=== PATIENT | female | born 1960 | race Caucasian/White ===

== ENCOUNTER → 2016-04-30 | Outpatient (CLI) | payer BC ==
[~2016-04-30] MED LIST: HYDR-5688 PO; LPT10 PO; LXP20 PO; TOPI50TA24 PO; VALA1TAB PO
== END | disposition home or self-care (01) ==
LOC: C.PAPS 11:42
PROVIDERS: ATTEND Obstetrics & Gynecology
DX: Z01.419 Encounter for gynecological examination (general) (routine) without abnormal findings (principal)

== ENCOUNTER 2016-06-08 23:52 | Emergency (ER) | payer BC ==
[~2016-06-08] VITALS: Ht 160 cm; Wt 62.2 kg
[2016-06-08 23:54] VITALS: Ht 160 cm; Wt 62.2 kg
[2016-06-09] MEDS ORDERED: SODIUM CHLORIDE 0.9% 1000ML 1,000 ML IV STA (00:16)
[2016-06-09] MEDS ORDERED: HYDROmorphone INJ 0.5 MG/0.5 ML SYR IV STA (00:16)
[2016-06-09] MEDS ORDERED: PROMETHAZINE HCL INJ 25 MG in SODIUM CHLORIDE 0.9% 50ML 50 ML IV STA (00:16)
[2016-06-09 01:23] LABS: HEMATOCRIT 43.4 % (37-47); MEAN CELL VOLUME 89.7 fL (80-100); MEAN CORPUSCULAR HEMOGLOBIN 31.8 pg (25-34); MEAN CORPUSCULAR HGB CONC 35.5 g/dl (32-36); MEAN PLATELET VOLUME 9.9 fL (7.4-10.4); PLATELET COUNT 250 K/uL (130-400); RED BLOOD COUNT 4.84 M/uL (4.2-5.4); WHITE BLOOD COUNT 10.94 K/uL (4.8-10.8)
[2016-06-09 01:32] LABS: BUN/CREATININE RATIO 11.6 (10-20); CALCIUM 9.7 mg/dl (8.5-10.1); CREATININE 0.93 mg/dl (0.60-1.20); POTASSIUM 3.5 mmol/L (3.5-5.1)
[2016-06-09 01:48] LABS: BASO % 0.1 %; BASO ABS # 0.01 K/uL (0-0.2); COMPLETE YES; EOS % 0.1 %; IG% 0.2 %; LYMPH % 4.5 %; LYMPH ABS # 0.49 K/uL (1.2-3.4); MONO % 8.5 %; NEUT % 86.6 %
[2016-06-09] MEDS ORDERED: ONDANSETRON HOME PACK 4MG OD TAB PO ONE (02:00)
--- NOTE | 2016-06-09 02:01 | EMERGENCY ROOM VISIT NOTE ---
History First contact with patient: 00:09 Chief Complaint: HEADACHE Stated Complaint: THROWING UP,HEADACHE, SINUS History of Present Illness The patient is a 56 year old female who presents to the Emergency Room with complaints of migraine for the past day with sinus pain and congestion for the past week. Patient went to urgent care and was placed on Augmentin and prednisone. She did this today. Patient states she had a low-grade temperature 100. Patient states she feels worse and this is what prompted her to come here. Patient states she's had a few sinus infections every year. No imaging on her brain or sinuses. She describes pain as throbbing, ranging in severity 9 out of 10 throughout the frontal region. Nothing makes it better or worse. She states she has clear nasal discharge. Patient denies chest pain, dyspnea, cough, sore throat, neck stiffness, localized weakness, numbness, tingling, abdominal pain. Review of Systems See HPI for pertinent positives & negatives. A total of 10 systems reviewed and were otherwise negative. Past Medical/Surgical History Medical Problems: (1) Depression Migraine Family History Diabetes mellitus FH: cancer FH: gallbladder disease FH: heart disease Hypertension Kidney disease Social History Smoking Status: Never Smoker Smokeless Tobacco Use: No Drug Use: none Marital Status: Housing Status: lives with family Occupation Status: employed Current/Historical Medications Scheduled Atorvastatin (Atorvastatin Calcium), 10 MG PO DAILY Escitalopram Oxalate (Escitalopram Oxalate), 20 MG PO QAM Topiramate (Topamax), 50 MG PO BID Scheduled PRN Hydrocodone/Acetaminophen 5MG/325MG ([place] 5MG/325MG), 1-2 TABLET PO Q4H PRN for Pain Valacyclovir (Valtrex), 1,000 MG PO BID PRN for outbreak Allergies Coded Allergies: Aspirin (Unverified Allergy, Mild, UPSET STOMACH, 04/09/16) Physical Exam Vital Signs Date Time Temp Pulse Resp B/P Pulse Ox O2 Delivery O2 Flow Rate FiO2 06/09/16 01:57 84 18 111/61 94 Room Air 06/08/16 23:54 36.9 112 18 131/69 95 Room Air Physical Exam VITALS: Vitals are noted on the nurse's note and reviewed by myself. Vital signs stable. GENERAL: Pleasant female who appears in pain, nondiaphoretic, well-developed well-nourished. SKIN: The skin was without rashes, erythema, edema, or bruising. There is no tenting of the skin. Capillary reflex less than 2 seconds. HEAD: Normocephalic atraumatic. EARS: External auditory canals clear, tympanic membranes pearly burt without erythema or effusion bilaterally. EYES: Pupils equal round and reactive to light and accommodation. Conjunctivae without injection, sclerae without icterus. Extraocular movements intact. NOSE: Patent, turbinates without inflammation or discharge. Bilateral maxillary sinus tenderness. MOUTH: Mucous membranes mildly dry. Pharynx without erythema or exudate. Uvula midline. Airway patent. Tongue does not deviate. NECK: Supple without nuchal rigidity. No lymphadenopathy. No thyromegaly. Cervical spine is nontender. No JVD. HEART: Regular rate and rhythm without murmurs gallops or rubs. LUNGS: Clear to auscultation bilaterally without wheezes, rales or rhonchi. No dullness to percussion. No retractions or accessory muscle use. ABDOMEN: Positive bowel sounds x 4. Normal tympanic percussion. Soft, nontender, without masses or organomegaly. Chaudhari sign negative. No guarding or rebound tenderness. MUSCULOSKELETAL: No muscle atrophy, erythema, or edema noted. NEURO: Patient was alert and oriented to person place and time. Normal sensation to light and sharp touch. No focal neurological deficits. Cranial nerves II-12 grossly intact. No pronator drift. Cerebellar exam intact. Medical Decision & Procedures Laboratory Results 06/09/16 00:56 Red Blood Count 4.84, Mean Corpuscular Volume 89.7, Mean Corpuscular Hemoglobin 31.8, Mean Corpuscular Hemoglobin Concent 35.5, Mean Platelet Volume 9.9, Neutrophils (%) (Auto) 86.6, Lymphocytes (%) (Auto) 4.5, Monocytes (%) (Auto) 8.5, Eosinophils (%) (Auto) 0.1, Basophils (%) (Auto) 0.1, Neutrophils # (Auto) 9.48, Lymphocytes # (Auto) 0.49, Monocytes # (Auto) 0.93, Eosinophils # (Auto) 0.01, Basophils # (Auto) 0.01 06/09/16 00:56 Test 06/09/16 00:56 White Blood Count 10.94 K/uL (4.8-10.8) Red Blood Count 4.84 M/uL (4.2-5.4) Hemoglobin 15.4 g/dL (12.0-16.0) Hematocrit 43.4 % (37-47) Mean Corpuscular Volume 89.7 fL (80-100) Mean Corpuscular Hemoglobin 31.8 pg (25-34) Mean Corpuscular Hemoglobin Concent 35.5 g/dl (32-36) Platelet Count 250 K/uL (130-400) Mean Platelet Volume 9.9 fL (7.4-10.4) Neutrophils (%) (Auto) 86.6 % Lymphocytes (%) (Auto) 4.5 % Monocytes (%) (Auto) 8.5 % Eosinophils (%) (Auto) 0.1 % Basophils (%) (Auto) 0.1 % Neutrophils # (Auto) 9.48 K/uL (1.4-6.5) Lymphocytes # (Auto) 0.49 K/uL (1.2-3.4) Monocytes # (Auto) 0.93 K/uL (0.11-0.59) Eosinophils # (Auto) 0.01 K/uL (0-0.5) Basophils # (Auto) 0.01 K/uL (0-0.2) RDW Standard Deviation 42.5 fL (36.4-46.3) RDW Coefficient of Variation 12.9 % (11.5-14.5) Immature Granulocyte % (Auto) 0.2 % Immature Granulocyte # (Auto) 0.02 K/uL (0.00-0.02) Anion Gap 13.0 mmol/L (3-11) Est Creatinine Clear Calc Drug Dose 55.9 ml/min Estimated GFR () 79.6 Estimated GFR (Non- 68.7 BUN/Creatinine Ratio 11.6 (10-20) Calcium Level 9.7 mg/dl (8.5-10.1) Medications Administered Medications (Trade) Dose Ordered Sig/Pradeep Route Start Time Stop Time Status Last Admin Dose Admin Hydromorphone HCl 0.5 mg 0.5 mg NOW STAT IV 06/09/16 00:16 06/09/16 00:19 DC 06/09/16 00:55 0.5 MG Promethazine HCl 25 mg/Sodium Chloride 51 ml @ 204 mls/hr NOW STAT IV 06/09/16 00:16 06/09/16 00:30 DC 06/09/16 00:55 204 MLS/HR Sodium Chloride (Nss 1000ml) 1,000 ml @ 999 mls/hr Q1H1M STAT IV 06/09/16 00:16 06/09/16 01:16 DC 06/09/16 00:55 999 MLS/HR ED Course Prior records/ancillary studies reviewed. Additional history obtained from family Triage Nursing notes reviewed. The patient's history was concerning for headache. Differential diagnosis: Etiologies such as migraine headache, meningitis, sinusitis, CO exposure, ICH, SAH, infection, tumor, headache, sinus thrombosis, arterial dissection, as well as others were entertained. Physical examination findings: As above. Non-focal. ER treatment provided: Phenergan and Dilaudid per patient stated protocol with IV fluids On reassessment the patient felt better. Diagnostics interpreted by me: The labs revealed mild leukocytosis most likely from prednisone. Mild hyperglycemia at most likely from prednisone. Imaging studies: CT of the head and sinuses are read by stat radiology concerning for sinusitis This appears to be consistent with sinus headache. Patient is already on antibiotics. She is on prednisone. She felt much better to be medicated as above. She is advised to continue medications as directed and to follow-up with ENT in a few days or here in the ER sooner for high fevers, lethargy, headache, confusion, worsening signs or symptoms or as needed. Patient is well- appearing. No signs of meningitis. She is afebrile and nontoxic. By the evaluation outlined above emergent etiologies such as meningitis, CO exposure, ICH, SAH, temporal arteritis, tumor, sinus thrombosis, arterial dissection, as well as others were deemed relatively unlikely. The pt informed about the findings as listed above. All questions were answered and pleased with the treatment. Return instructions were outlined and the patient was discharged in stable condition. Outpatient prescription management: Brittaniefran Referral: The patient was referred back to their primary care physician and ENT for follow -up in 2 to 3 days for a recheck of the current condition. Case reviewed my attending Medical Decision As above Impression Primary Impression: Sinus headache Departure Information Dispostion Home / Self-Care Condition GOOD Referrals RV. Lewis MD (PCP) Patient Instructions [facility] Additional Instructions DO NOT drive, drink alcohol, operate machinery, or perform dangerous activities today. You were given medications in the ER that can affect your ability to safely function or operate a vehicle. Continue medications as prescribed by urgent care. Rest today in a quiet, peaceful, dark environment and get a full 8-10 hrs of sleep tonight. Avoid loud noises, smoke/smoking, alcohol, bright lights, stress, or physical exertion today to minimize the chance the headache may return. Continue current medications. Acetaminophen(Tylenol) may be used for fever or pain. Use 1000mg every six hours as needed. Avoid using more than 3000mg in a 24 hour period. Return to the ER for passing out, worsening headache, vision problems, neck stiffness/pain, fevers, vomiting, worsening of your condition, or as needed. Follow up with your primary physician ENT in 2-3 days for a recheck of your current condition.
[2016-06-09 02:15] VITALS: BP 119/62; PULSE 79; TEMP 36.9; O2SAT 95
--- NOTE | 2016-06-09 06:50 | DIAGNOSTIC IMAGING REPORT ---
CT OF THE HEAD WITHOUT CONTRAST CLINICAL HISTORY: Headache. Sinus pain. COMPARISON STUDY: Head CT April 15, 2013. TECHNIQUE: Helical axial images of the head were obtained without IV contrast. Automated exposure control was utilized for the study. FINDINGS: The sinus CT will be reported separately. No acute intracranial hemorrhage, midline shift or mass effect is present. Ventricular system is normal. The basilar cisterns are patent. No extra-axial collections are present. Rooney-white differentiation is maintained. There are no findings to suggest acute dural sinus thrombosis or acute territorial infarct. There is no calvarial fracture. Mastoid air cells are clear. There is minimal mucosal thickening within the right ethmoid sinuses. IMPRESSION: No acute intracranial findings. Electronically signed by: Gilbert Hall M.D. 06/09/2016 6:48 AM Dictated Date/Time: 06/09/2016 6:46 AM
--- NOTE | 2016-06-09 06:59 | DIAGNOSTIC IMAGING REPORT ---
CT SINUSES-MAXILLOFACIAL W/O CLINICAL HISTORY: Headache and sinus pain. COMPARISON STUDY: None. TECHNIQUE: CT scan of the paranasal sinuses was performed in the axial plane. Coronal reconstructed images were obtained and reviewed. CT DOSE: FINDINGS: There is no evidence of hydrocephalus. There is minor right maxilla sinus mucosal thickening. There is minor mucosal thickening within the sphenoid and ethmoid sinuses. The mastoid air cells appear well aerated. The middle ear cavities appear well aerated. There are no air-fluid levels to indicate acute sinusitis. There is engorgement of the right middle and inferior turbinates. There is ostial and infundibular narrowing of the right ostiomeatal unit due to mucosal hypertrophy. IMPRESSION: 1. No evidence of acute sinusitis 2. Ostial and infundibular narrowing of the right ostiomeatal unit secondary to mucosal hypertrophy 3. Engorgement of the right middle and inferior nasal turbinates Electronically signed by: Lito Garcia M.D. 06/09/2016 6:57 AM Dictated Date/Time: 06/09/2016 6:55 AM
== END 2016-06-09 02:15 | disposition home or self-care (01) ==
LOC: C.EDB 23:53
DX: R51 Headache (principal); Z88.6 Allergy status to analgesic agent; Z83.3 Family history of diabetes mellitus; Z80.9 Family history of malignant neoplasm, unspecified; Z82.49 Family history of ischemic heart disease and other diseases of the circulatory system; Z84.1 Family history of disorders of kidney and ureter

== ENCOUNTER → 2016-07-17 | Outpatient (CLI) | payer OTHER, BC ==
[~2016-07-17] MED LIST changes: -HYDR-5688 PO; -VALA1TAB PO
--- NOTE | 2016-07-17 14:11 | DIAGNOSTIC IMAGING REPORT ---
RIGHT SHOULDER 3 VIEWS CLINICAL HISTORY: Right shoulder pain. FINDINGS: 3 views of the right shoulder are compared to study dated 08/11/2007. The skeletal structures are osteopenic. No fracture or dislocation is seen. Mild productive degenerative change is noted at the acromioclavicular joint. The glenohumeral articulation is preserved. The overlying soft tissues are within normal limits. The partially imaged right lung parenchyma appears clear. IMPRESSION: No acute bony abnormality is seen in the right shoulder. Electronically signed by: Randall Mendez M.D. 07/17/2016 2:10 PM Dictated Date/Time: 07/17/2016 2:09 PM
== END | disposition home or self-care (01) ==
LOC: C.RAD1850 13:38
PROVIDERS: ATTEND Nurse Practitioner Adult Health
DX: M25.511 Pain in right shoulder (principal)

== ENCOUNTER → 2016-09-10 | Outpatient (CLI) | payer BC ==
--- NOTE | 2016-09-11 12:53 | MAMMOGRAPHY REPORT ---
BILATERAL DIGITAL SCREENING MAMMOGRAM TOMOSYNTHESIS WITH CAD: 09/10/2016 CLINICAL HISTORY: Routine screening. Patient has no complaints. TECHNIQUE: Breast tomosynthesis in addition to standard 2D mammography was performed. Current study was also evaluated with a Computer Aided Detection (CAD) system. COMPARISON: Comparison is made to exams dated: 08/07/2015 mammogram, 06/14/2014 mammogram, 06/12/2013 mammogram, 06/10/2012 mammogram, 08/25/2010 mammogram - [facility], and 12/05/2008. BREAST COMPOSITION: There are scattered areas of fibroglandular density in both breasts. FINDINGS: No suspicious masses, calcifications, or areas of architectural distortion are noted in e ither breast. There has been no significant interval change compared to prior exams. IMPRESSION: ACR BI-RADS CATEGORY 1: NEGATIVE There is no mammographic evidence of malignancy. A 1 year screening mammogram is recommended. The p atient will receive written notification of the results. Approximately 10% of breast cancers are not detected with mammography. A negative mammographic repor t should not delay biopsy if a clinically suggestive mass is present. Jo Ann Dsouza M.D. /:09/10/2016 16:51:29 Street Sweeper: Gera RUBIN(Frances)(M), [facility] letter sent: Normal 1/2 BI-RADS Code: ACR BI-RADS Category 1: Negative
== END | disposition home or self-care (01) ==
LOC: C.MAMM 15:49
PROVIDERS: ATTEND Obstetrics & Gynecology
DX: Z12.31 Encounter for screening mammogram for malignant neoplasm of breast (principal)

== ENCOUNTER → 2017-11-29 | Outpatient (CLI) | payer OTHER ==
[2017-11-29 13:30] LABS: ALBUMIN 3.9 gm/dl (3.4-5.0); ALKALINE PHOSPHATASE 121 U/L (45-117); ALT/SGPT 25 U/L (12-78); AST/SGOT 18 U/L (15-37); BLOOD UREA NITROGEN 20 mg/dl (7-18); CALCIUM 9.4 mg/dl (8.5-10.1); CARBON DIOXIDE 25 mmol/L (21-32); CHOLESTEROL 193 mg/dl (0-200); CREATININE 1.01 mg/dl (0.60-1.20); GLUCOSE 92 mg/dl (70-99); LDL CHOLESTEROL CALCULATED 105 mg/dl; POTASSIUM 3.9 mmol/L (3.5-5.1); SODIUM 142 mmol/L (136-145); TOTAL PROTEIN 7.9 gm/dl (6.4-8.2)
== END | disposition home or self-care (01) ==
LOC: C.LABBFT 07:37
PROVIDERS: ATTEND Internal Medicine
DX: Z00.00 Encounter for general adult medical examination without abnormal findings (principal); E55.9 Vitamin D deficiency, unspecified

== ENCOUNTER 2017-12-01 12:03 | Emergency (ER) | payer OTHER ==
[~2017-12-01] VITALS: Ht 160 cm; Wt 64.5 kg
[2017-12-01 12:09] VITALS: TEMP 36.9; Ht 160 cm; Wt 64.5 kg
[2017-12-01] MEDS ORDERED: METHYLPREDNISOLONE 125 MG VIAL IV STA (12:30)
[2017-12-01] MEDS ORDERED: SODIUM CHLORIDE 0.9% 1000ML 1,000 ML IV STA (12:30)
[2017-12-01] MEDS ORDERED: KETOROLAC TROMETHAMINE 30 MG/ML VIAL IV STA (12:30)
[2017-12-01] MEDS ORDERED: DiphenhydrAMINE HCL 50 MG/ML VIAL IV STA (12:30)
[2017-12-01] MEDS ORDERED: PROCHLORPERAZINE 5 MG/ML 2 ML VIAL IV STA (12:30)
[2017-12-01 14:16] VITALS: BP 128/79; PULSE 81; O2SAT 96
--- NOTE | 2017-12-01 23:34 | EMERGENCY ROOM VISIT NOTE ---
History First contact with patient: 12:13 Chief Complaint: HEADACHE Stated Complaint: MIGRAINE History of Present Illness The patient is a 57 year old female who presents to the Emergency Room with complaints of a migraine headache for the past 4 days. The patient reports a history of chronic migraines, and reports that this headache is similar to all prior migraines. It is not the worst headache of her life. She describes it as a throbbing right temporal pain and retro-orbital pressure. She reports nausea without vomiting, photophobia and phonophobia. The patient reports that she is on multiple medications for her migraine management, including Topamax, vitamin B2, magnesium sulfate, as well as additional medications that she cannot recall the name of. When the patient gets an acute migraine exacerbation , she takes Excedrin Migraine and extra strength Midol. She denies any other recent illness, head injury or risk of carbon monoxide exposure. She rates her headache an 8 out of 10. Review of Systems HEENT: Denies dizziness, hearing loss, tinnitus. Denies difficulty swallowing or oral lesions. PULMONARY: Denies cough, shortness of breath, sputum production or hemoptysis. CARDIOVASCULAR: Denies chest pain, palpitations, dyspnea on exertion, orthopnea or peripheral edema. GASTROINTESTINAL: Denies diarrhea, constipation, nausea, vomiting, or abdominal pain. GENITOURINARY: Denies dysuria, frequency, urgency or nocturia. NEUROLOGIC: History of migraines. MUSCULOSKELETAL: Denies history of joint tenderness/swelling. SKIN: Denies rashes or lesions. PSYCHIATRIC: History of depression. ENDOCRINE: Denies history of diabetes or thyroid disorders. Past Medical/Surgical History Medical Problems: (1) Depression Family History Diabetes mellitus FH: cancer FH: gallbladder disease FH: heart disease Hypertension Kidney disease Social History Smoking Status: Never Smoker Alcohol Use: none Drug Use: none Marital Status: Housing Status: lives with family Occupation Status: employed Current/Historical Medications Scheduled Atorvastatin (Lipitor), 10 MG PO DAILY Escitalopram Oxalate (Escitalopram Oxalate), 20 MG PO QAM Topiramate (Topamax), 50 MG PO BID Physical Exam Vital Signs Date Time Temp Pulse Resp B/P (MAP) Pulse Ox O2 Delivery O2 Flow Rate FiO2 12/01/17 14:16 81 18 128/79 96 Room Air 12/01/17 12:09 36.9 83 18 118/75 98 Room Air Physical Exam CONSTITUTIONAL: Healthy and well nourished. Alert and oriented X 3 with positive affect. Patient appears in moderate discomfort from her headache. She is resting in a darkened room with sunglasses on. HEENT: Normocephalic, atraumatic. Pupils equal, round and reactive. Patient is photophobic, precluding funduscopic exam. No scleral icterus or conjunctival injection/pallor. NECK: Full active range of motion without discomfort. No nuchal rigidity, JVD or carotid bruits. RESPIRATORY: Clear to auscultation bilaterally with no wheezing, crackles, rhonchi or stridor. CARDIOVASCULAR: Regular rate and rhythm with no murmurs, rubs or gallops. MUSCULOSKELETAL: Full range of motion of all joints without discomfort. INTEGUMENTARY: No rash or other significant dermatologic conditions noted. NEUROLOGIC: Cranial nerves II-XII grossly intact. No focal neurologic deficits noted. Negative pronator drift. No ataxia with ambulation to her exam room. Medical Decision & Procedures Medications Administered Medications (Trade) Dose Ordered Sig/[facility] Route Start Time Stop Time Status Last Admin Dose Admin Sodium Chloride 1,000 ml @ 999 mls/hr Q1H1M STAT IV 12/01/17 12:30 12/01/17 13:30 DC 12/01/17 13:15 999 MLS/HR Ketorolac Tromethamine (Toradol Inj) 30 mg NOW STAT IV 12/01/17 12:30 12/01/17 12:32 DC 12/01/17 13:21 30 MG Prochlorperazine Edisylate (Compazine Inj) 10 mg NOW STAT IV 12/01/17 12:30 12/01/17 12:32 DC 12/01/17 13:18 10 MG Diphenhydramine HCl (Benadryl Inj) 50 mg NOW STAT IV 12/01/17 12:30 12/01/17 12:32 DC 12/01/17 13:16 50 MG Methylprednisolone Sodium Succinate (Solu-Medrol IV) 125 mg NOW STAT IV 12/01/17 12:30 12/01/17 12:32 DC 12/01/17 13:21 125 MG ED Course Patient history and physical exam were performed. Nurse's notes were reviewed. Vital signs were reviewed and were normal. IV access was established, and the patient was administered IV hydration and medications as discussed in the previous Medications Administered section. Reassessment at 1 hour showed that the patient's headache pain was reduced to a 2 out of 10, and she felt well enough for discharge home. The patient was encouraged to rest and remain well- hydrated. I did encourage her to follow-up with her PCP/neurologist for further follow-up if her migraine persists. She is welcome to return for progressively worsening pain, neurologic symptoms, fever or other concerns. The patient was happy with plan of care, and voiced understanding of all discharge instructions. Medical Decision Patient has a prior history of migraines, and reports that this pain is similar to all prior. I do not feel that further imaging or laboratory studies are warranted. Based on history and physical exam findings, I do not suspect meningitis, CVA/TIA, abscess, intracranial bleed, thromboembolic event or carbon monoxide poisoning. [place] Drug Monitoring Program Search Results: patient reviewed within database, no issues identified Medication Reconcilliation Current Medication List: was personally reviewed by me Blood Pressure Screening Patient's blood pressure: Normal blood pressure Impression Primary Impression: Migraine Departure Information Referrals RV. Lewis MD (PCP) Patient Instructions [facility] Problem Qualifiers Primary Impression: Migraine Migraine type: unspecified Status migrainosus presence: without status migrainosus Intractability: not intractable Qualified Codes: G43.909 - Migraine, unspecified, not intractable, without status migrainosus
== END 2017-12-01 14:50 | disposition home or self-care (01) ==
LOC: C.EDB 12:04 → C.EDC 14:50
DX: G43.909 Migraine, unspecified, not intractable, without status migrainosus (principal); F32.9 Major depressive disorder, single episode, unspecified; Z86.69 Personal history of other diseases of the nervous system and sense organs